=== PATIENT | female | born 1980 | race Caucasian/White ===

== ENCOUNTER 2018-11-07 11:27 | Emergency (ER) | payer OTHER, MEDICAID ==
[~2018-11-07] VITALS: Ht 152.4 cm; Wt 92.1 kg
[2018-11-07 11:52] VITALS: BP 138/95
--- NOTE | 2018-11-07 11:59 | NUR ---
PT PROVIDED URINE SAMPLE AND THEN AMBULATED TO LOBBY. VSS
[2018-11-07] MEDS ORDERED: ALBUTEROL SULFATE/IPRATROPIU 3 ML SOL IH ONE (12:05)
[2018-11-07] MEDS ORDERED: predniSONE 20 MG TAB PO ONE (12:10)
--- NOTE | 2018-11-07 12:17 | NUR ---
RESP. TX. IN PROGRESS
--- NOTE | 2018-11-07 12:25 | NUR ---
MEDICATED WITH 60 MG PREDNISONE. LUNGS CLEAR TO AUSCULTATE AFTER TESP. TX. MUCH BETTER PER PATIENT
--- NOTE | 2018-11-07 13:15 | NUR ---
pt in semi-prieto's, on her cell phone---full clear speech, no accessory muscle use noted pt admits her breathing is much easier---awaits dispo
[2018-11-07 15:30] VITALS: BP 148/85
--- NOTE | 2018-11-07 15:30 | NUR ---
Patient discharged with v/s stable. Written and verbal after care instructions given and explained. Patient alert, oriented and verbalized understanding of instructions. Ambulatory with steady gait. All questions addressed prior to discharge. ID band removed. Patient advised to follow up with PMD. Rx of ALBUTEROL 90MCG/ACTUATION AND PREDNISONE 50MG given. Patient educated on indication of medication including possible reaction and side effects. Opportunity to ask questions provided and answered.
== END 2018-11-07 15:30 | disposition home or self-care (01) ==
LOC: MED 11:27
DX: J45.901 Unspecified asthma with (acute) exacerbation (principal); Z88.0 Allergy status to penicillin
CPT/HCPCS: 94640; 94760; 99283; J7512; J7620

== ENCOUNTER 2018-11-10 19:35 | Emergency (ER) | payer OTHER, MEDICAID ==
[~2018-11-10] VITALS: Ht 152.4 cm; Wt 90.7 kg
[2018-11-10 19:47] VITALS: BP 140/83
--- NOTE | 2018-11-10 19:49 | NUR ---
TO LOBBY A/W BED, NATALIA SPANN NOTED
--- NOTE | 2018-11-10 20:19 | NUR ---
38 Y FEMALE BIB SELF C/O SOB, PRODUCTIVE COUGH, HEADACHE, X 6 DAYS. WHEEZES NOTED THOUGHOUT LUNGS BILATERALLY. PT 02 AT 98. PT STATES SHE WAS SEEN ON WEDNESDAY AND WAS GIVING A BREATHING TREATMENT IN THE ER, WAS SENT HOME WITH PREDNISONE AND AN INHALER. NO RELIEF SINCE THEN. BED IS DOWN, LOCKED, BED RAIL X 1, ERMD NOTIFIED. PMH-ASTHMA
--- NOTE | 2018-11-10 20:27 | NUR ---
RAD AT BEDSIDE
--- NOTE | 2018-11-10 21:16 | NUR ---
REPORT GIVEN TO JOSE SIMS
[2018-11-10] MEDS ORDERED: ALBUTEROL 0.083% 2.5 MG/3 ML NEBU INH ONE (21:20)
[2018-11-10] MEDS ORDERED: predniSONE 20 MG TAB PO ONE (21:20)
[2018-11-10] MEDS ORDERED: IPRATROPIUM 0.02% 0.5 MG/2.5 ML NEBU INH ONE (21:20)
--- NOTE | 2018-11-10 21:29 | NUR ---
RT AT BEDSIDE FOR TX, PT AWAKE, ALERT, ON PHONE, 02 AT 98% ON RA.
--- NOTE | 2018-11-10 21:33 | NUR ---
Respiratory Therapist at bedside for respiratory intervention. Patient tolerated .
[2018-11-10 23:25] VITALS: BP 138/84
--- NOTE | 2018-11-10 23:25 | NUR ---
Patient discharged with v/s stable. Written and verbal after care instructions given and explained. Patient alert, oriented and verbalized understanding of instructions. Ambulatory with steady gait. All questions addressed prior to discharge. ID band removed. Patient advised to follow up with PMD. Rx of PREDNISONE AND ALBUTEROL given. Patient educated on indication of medication including possible reaction and side effects. Opportunity to ask questions provided and answered.
== END 2018-11-10 23:25 | disposition home or self-care (01) ==
LOC: MED 19:35
DX: J45.901 Unspecified asthma with (acute) exacerbation (principal); Z88.0 Allergy status to penicillin
CPT/HCPCS: 71045; 81025; 94644; 99283; J7512; J7613; J7644; 94640

== ENCOUNTER 2019-03-01 11:07 | Emergency (ER) | payer OTHER, MEDICAID ==
[~2019-03-01] VITALS: Ht 152.4 cm; Wt 92.3 kg
[2019-03-01 11:11] VITALS: BP 137/92
--- NOTE | 2019-03-01 11:25 | NUR ---
DR. SCHREIBER AT BEDSIDE
--- NOTE | 2019-03-01 11:25 | NUR ---
C/O BILAT EYE ITCHINESS X2 DAYS WELL URINARY FREQUENCY/DYSURIA. PT STATES SHE HAS BEEN GOING IN THE STEAM ROOM AT HER GYM WHERE SHE FEELS LIKE SWEAT DRIPS INTO HER EYES AND SHE THINKS IT MAY BE THE REASON WHY HER EYES ITCH. DENIES VISION CHANGES. PT STATES SHE WAKES UP WITH CRUST/DISCHARGE IN HER EYES. PT ALSO REPORTS URINARY FREQUENCY AND PAIN X2 DAYS WELL. BED IN LOW POSITION, SIDE RAIL UP X1
[2019-03-01 11:49] VITALS: BP 137/92
--- NOTE | 2019-03-01 11:50 | NUR ---
Patient discharged with v/s stable. Written and verbal after care instructions given and explained. Patient alert, oriented and verbalized understanding of instructions. Ambulatory with steady gait. All questions addressed prior to discharge. ID band removed. Patient advised to follow up with PMD. Rx of BACTRIM & GENTAMYCIN given. Patient educated on indication of medication including possible reaction and side effects. Opportunity to ask questions provided and answered.
== END 2019-03-01 11:50 | disposition home or self-care (01) ==
LOC: MED 11:07
DX: H10.33 Unspecified acute conjunctivitis, bilateral (principal); B96.89 Other specified bacterial agents as the cause of diseases classified elsewhere; N39.0 Urinary tract infection, site not specified; J45.909 Unspecified asthma, uncomplicated; Z88.0 Allergy status to penicillin
CPT/HCPCS: 81002; 81025; 99283

== ENCOUNTER 2019-04-06 14:43 | Outpatient (CLI) | payer OTHER, MEDICAID | END 2019-04-06 20:09 | disposition home or self-care (01) | LOC: MCT 14:43 | PROVIDERS: ATTEND Obstetrics & Gynecology | DX: N20.0 Calculus of kidney (principal) ==

== ENCOUNTER 2020-05-14 12:15 | Outpatient (CLI) | payer MEDICAID, OTHER ==
[2020-05-15 15:53] LABS: HEPATITIS B SURFACE ANTIGEN NEGATIVE (NEGATIVE)
[2020-05-16 09:08] LABS: CHLAMYDIA TRACHOMATIS AMP DNA Negative (Negative)
== END 2020-05-14 20:39 | disposition home or self-care (01) ==
LOC: MLB 12:15
PROVIDERS: ATTEND Obstetrics & Gynecology
DX: R22.9 Localized swelling, mass and lump, unspecified (principal); Z11.3 Encounter for screening for infections with a predominantly sexual mode of transmission
CPT/HCPCS: 36415; 86592; 86694; 86702; 87340; 87491; 87522

== ENCOUNTER 2020-07-10 19:14 | Emergency (ER) | payer OTHER ==
[~2020-07-10] VITALS: Ht 152.4 cm; Wt 86.2 kg
[2020-07-10 19:55] VITALS: BP 154/83
--- NOTE | 2020-07-10 19:55 | NUR ---
TO TENT # 04 AMBULATORY
--- NOTE | 2020-07-10 20:30 | NUR ---
PATIENT LEFT WITHOUT BEING SEEN BY DR. GARCIA. NO FURTHER CARE PROVIDED FOR PATIENT.PT VSS PRIOR TO LWBS
== END 2020-07-10 20:30 | disposition left against medical advice (07) ==
LOC: MED 19:14
DX: R06.02 Shortness of breath (principal); R05 Cough; Z53.21 Procedure and treatment not carried out due to patient leaving prior to being seen by health care provider

== ENCOUNTER 2021-01-15 07:46 | Emergency (ER) | payer OTHER ==
[~2021-01-15] VITALS: Ht 152.4 cm; Wt 88.5 kg
--- NOTE | 2021-01-15 07:54 | NUR ---
Pt ambulated to ER bed 7 for bedside triage.
[2021-01-15 07:59] VITALS: BP 166/100
--- NOTE | 2021-01-15 07:59 | NUR ---
Dr. Blackwell at pt bedside for further evaluation.
[2021-01-15] MEDS ORDERED: HYDROXYZINE HYDROCHLORIDE 25 MG TAB PO SCH (08:05)
[2021-01-15] MEDS ORDERED: predniSONE 20 MG TAB PO ONE (08:05)
[2021-01-15] MEDS ORDERED: ALBUTEROL SULFATE/IPRATROPIU 3 ML SOL IH ONE (08:05)
--- NOTE | 2021-01-15 08:15 | NUR ---
40 Y/O FEMALE C/O SOB X1DAY WITH CHEST TIGHTNESS 5/10. PT STATES SHE RAN OUT OF INHALER AND HAS NOT FILLED PRESCRIPTION. DENIES N/V/D; SKIN IS PINK/WARM/DRY; AAOX4 WITH EVEN AND STEADY GAIT; LUNGS BILATERAL WHEEZING INSPIRATORY AND EXPIRATORY, [place], EVEN RISE AND FALL OF CHEST; HR EVEN AND REGULAR; PT DENIES ANY FEVER OR COUGH AT THIS TIME; PATIENT STATES PAIN OF 5/10 AT THIS TIME; VSS; PATIENT POSITIONED FOR COMFORT; HOB ELEVATED; BEDRAILS UP X2; BED DOWN. ER MD MADE AWARE OF PT STATUS. PMH: ASTHMA ALLERGIES: PCN
[2021-01-15] MEDS ORDERED: HYDR-637 PO (10:15)
[2021-01-15] MEDS ORDERED: PRED20TA5 PO (10:15)
[2021-01-15] MEDS ORDERED: PRON INH (10:15)
[2021-01-15] MEDS ORDERED: ALBU0.0912 IH (10:15)
--- NOTE | 2021-01-15 10:46 | NUR ---
Patient discharged with v/s stable. Written and verbal after care instructions given and explained. Patient alert, oriented and verbalized understanding of instructions. Ambulatory with steady gait. All questions addressed prior to discharge. ID band removed. Patient advised to follow up with PMD. Rx of ALBUTEROL SULFATE, HYDROXYZINE, PREDNISONE, ALBUTEROL HFA given. Patient educated on indication of medication including possible reaction and side effects. Opportunity to ask questions provided and answered.
[2021-01-15 10:47] VITALS: BP 166/100
== END 2021-01-15 10:36 | disposition home or self-care (01) ==
LOC: MED 07:46
DX: J45.901 Unspecified asthma with (acute) exacerbation (principal); F41.9 Anxiety disorder, unspecified; Z88.0 Allergy status to penicillin
CPT/HCPCS: 99283; J7512

== ENCOUNTER 2021-01-21 16:45 | Emergency (ER) | payer OTHER ==
[~2021-01-21] VITALS: Ht 152.4 cm; Wt 86.2 kg
[~2021-01-21 16:45] MED LIST: ALBU0.0912 IH; HYDR-637 PO; PRED20TA5 PO; PRON INH
[2021-01-21 17:13] VITALS: BP 160/107
[2021-01-21 18:19] LABS: BASOPHILS # (AUTO) 0.1 K/uL (0.00-0.22); EOSINOPHILS # (AUTO) 0.2 K/uL (0-0.4); EOSINOPHILS % (AUTO) 1.3 % (0.0-4.0); HEMATOCRIT 37.3 % (36-48); HEMOGLOBIN 11.8 g/dL (12.0-16.0); LYMPHOCYTES # (AUTO) 4.5 K/uL (2.5-16.5); LYMPHOCYTES % (AUTO) 38.9 % (20.5-51.1); MEAN CORPUSCULAR HEMOGLOBIN 25 pg (27-31); MEAN CORPUSCULAR HGB CONC 32 g/dL (33-37); MEAN CORPUSCULAR VOLUME 77.8 fL (80-94); MONOCYTES # (AUTO) 0.6 K/uL (0.8-1.0); MONOCYTES % (AUTO) 5.1 % (1.7-9.3); NEUTROPHILS # (AUTO) 6.2 K/uL (1.8-7.7); NEUTROPHILS % (AUTO) 53.7 % (42.2-75.2); PLATELET COUNT (AUTO) 379 K/uL (140-450); WHITE BLOOD COUNT (AUTO) 11.6 K/uL (4.8-10.8)
[2021-01-21 18:29] LABS: ANION GAP 14.3 (8-16); CARBON DIOXIDE 25.2 mmol/L (21-32); CREATININE 0.8 mg/dL (0.6-1.3); POTASSIUM 3.5 mmol/L (3.5-5.1)
[2021-01-21] MEDS: amLODIPine 5 MG TAB PO SCH (18:31)
[2021-01-21] MEDS ORDERED: AMLO5TAB PO (18:48)
[2021-01-21 19:01] VITALS: BP 160/107
== END 2021-01-21 19:03 | disposition home or self-care (01) ==
LOC: MED 16:45
DX: I10 Essential (primary) hypertension (principal); J45.909 Unspecified asthma, uncomplicated; Z88.0 Allergy status to penicillin; Z79.899 Other long term (current) drug therapy
CPT/HCPCS: 36415; 71045; 80048; 84484; 85025; 93005; 99285

== ENCOUNTER 2021-06-19 13:46 | Emergency (ER) | payer OTHER ==
[~2021-06-19] VITALS: Ht 152.4 cm; Wt 91.6 kg
[~2021-06-19 13:46] MED LIST changes: +AMLO5TAB PO
[2021-06-19 13:51] VITALS: BP 142/75
--- NOTE | 2021-06-19 14:28 | NUR ---
COVID NOVEL AND INFLUENZA SWAB COLLECTED AND WALKED OVER TO LAB
[2021-06-19] MEDS ORDERED: IBUP-2213 PO (14:31)
[2021-06-19] MEDS ORDERED: PROM118S5 PO (14:31)
--- NOTE | 2021-06-19 14:41 | NUR ---
SWABS WALKED OVER TO LAB BY [facility]
[2021-06-19 14:42] VITALS: BP 142/75
--- NOTE | 2021-06-19 14:42 | NUR ---
Patient discharged with v/s stable. Written and verbal after care instructions given and explained. Patient alert, oriented and verbalized understanding of instructions. Ambulatory with steady gait. All questions addressed prior to discharge. ID band removed. Patient advised to follow up with PMD. Rx of IBUPROFEN, PROMETHAZINE given. Patient educated on indication of medication including possible reaction and side effects. Opportunity to ask questions provided and answered.
== END 2021-06-19 14:42 | disposition home or self-care (01) ==
LOC: MED 13:46
DX: J06.9 Acute upper respiratory infection, unspecified (principal); Z20.822 Contact with and (suspected) exposure to COVID-19; J45.909 Unspecified asthma, uncomplicated; I10 Essential (primary) hypertension; Z79.899 Other long term (current) drug therapy; Z88.0 Allergy status to penicillin
CPT/HCPCS: 87804; 99283; U0003

== ENCOUNTER 2021-07-29 01:56 | Emergency (ER) | payer OTHER ==
[~2021-07-29] VITALS: Ht 152.4 cm; Wt 98.4 kg
[~2021-07-29 01:56] MED LIST changes: +IBUP-2213 PO; +PROM118S5 PO
[2021-07-29 02:19] VITALS: BP 148/98
--- NOTE | 2021-07-29 02:26 | NUR ---
patient ambulated to the bathroom for urine collection
[2021-07-29] MEDS ORDERED: NITROGLYCERIN 0.4 MG TAB SL ONE (02:40)
[2021-07-29] MEDS ORDERED: PANTOPRAZOLE 40 MG TABEC PO ONE (02:40)
[2021-07-29] MEDS ORDERED: ASPIRIN 325 MG TAB PO ONE (02:40)
[2021-07-29 04:04] LABS: ALBUMIN 3.2 g/dL (3.4-5.0); ANION GAP 11.4 (8-16); CREATININE 0.6 mg/dL (0.6-1.3); POTASSIUM 3.4 mmol/L (3.5-5.1); TOTAL BILIRUBIN 0.1 mg/dL (0.0-1.0)
[2021-07-29 04:07] LABS: HEMATOCRIT 36.7 % (36-48); MEAN CORPUSCULAR HEMOGLOBIN 27 pg (27-31); MEAN CORPUSCULAR HGB CONC 33 g/dL (33-37); MEAN CORPUSCULAR VOLUME 83.4 fL (80-94); PLATELET COUNT (AUTO) 261 K/uL (140-450); RED CELL DISTRIBUTION WIDTH 15.7 % (11.6-13.7); WHITE BLOOD COUNT (AUTO) 8.6 K/uL (4.8-10.8)
[2021-07-29 04:08] LABS: BASOPHILS % (AUTO) 0.9 % (0.0-2.0); EOSINOPHILS % (AUTO) 1.9 % (0.0-4.0); LYMPHOCYTES % (AUTO) 38.8 % (20.5-51.1); MONOCYTES % (AUTO) 5.9 % (1.7-9.3); NEUTROPHILS % (AUTO) 52.5 % (42.2-75.2)
[2021-07-29 04:09] LABS: BASOPHILS # (AUTO) 0.1 K/uL (0.00-0.22); EOSINOPHILS # (AUTO) 0.2 K/uL (0-0.4); LYMPHOCYTES # (AUTO) 3.3 K/uL (2.5-16.5); MONOCYTES # (AUTO) 0.5 K/uL (0.8-1.0); NEUTROPHILS # (AUTO) 4.5 K/uL (1.8-7.7)
[2021-07-29] MEDS ORDERED: ALBUTEROL SULFATE/IPRATROPIU 3 ML SOL IH ONE (04:25)
[2021-07-29] MEDS ORDERED: methylPREDNISolone SS 125 MG/2 ML VIAL IM ONE (04:25)
[2021-07-29] MEDS ORDERED: PRED20TA6 PO (04:36)
[2021-07-29] MEDS ORDERED: ALBU0.0912 IH (04:36)
[2021-07-29 05:14] VITALS: BP 115/112
--- NOTE | 2021-07-29 05:14 | NUR ---
patient left without discharge paperwork
--- NOTE | 2021-07-29 05:14 | NUR ---
Patient discharged with v/s stable that JESSICA Douglas is comfortable with. Written and verbal after care instructions given and explained through paperwork. Patient alert, oriented and verbalized understanding of instructions.Patient advised to follow up with PMD. Rx of prednisone, albuterol given. Patient departed from ER without discharge papers.
[2021-07-29] MEDS ORDERED: PRON INH (05:36)
== END 2021-07-29 05:14 | disposition home or self-care (01) ==
LOC: MED 01:56
DX: J45.901 Unspecified asthma with (acute) exacerbation (principal); I10 Essential (primary) hypertension; Z88.0 Allergy status to penicillin
CPT/HCPCS: 36415; 71045; 80053; 84484; 84703; 85025; 93005; 96372; 99285; J2930